=== PATIENT | male | born 1955 | race Caucasian/White ===

== ENCOUNTER 2017-09-01 08:54 | Emergency (ER) | payer SELFPAY ==
[~2017-09-01] VITALS: Ht 177.8 cm; Wt 81.0 kg
[~2017-09-01 08:54] MED LIST: DOXYCYCLINE HY100 MG PO; HYCODAN SYRUP480 ML PO; PERCOCET 5/31 TABLET PO; PROTONIX40 MG PO; REQUIP0.25 MG PO; TRAMADOL HCL50 MG PO; VITAMIN D-32000 UNI1 PO; ZESTRIL10 MG PO; ZOFRAN4 MG PO; Zestril,Prinivil PO
[2017-09-01 09:24] LABS: HEMATOCRIT 38.9 % (38.0-50.0); HEMOGLOBIN 13.9 G/DL (12.5-16.6); MCH 34.5 PG (29.0-34.0); MCHC 35.7 G/DL (30.0-36.0); MCV 96.5 FL (86-99); PLATELET COUNT 198 K/uL (156-360); RBC DIS.WIDTH-CV 11.9 % (11.8-14.6); RBC DIS.WIDTH-SD 42.4 % (39-53); RED BLOOD COUNT 4.03 M/uL (4.00-5.50); WHITE BLOOD COUNT 10.9 K/uL (4.1-10.2)
[2017-09-01 09:35] LABS: CHLORIDE 96 mEq/L (99-109); POTASSIUM 4.6 mEq/L (3.7-5.4); SODIUM 134 mEq/L (136-147)
[2017-09-01 09:36] LABS: GLUCOSE 123 mg/dL (70-99)
[2017-09-01 09:40] LABS: CREATININE 0.8 mg/dL (0.6-1.3); GFR ESTIMATE (CALCULATED) > 59 mL/min/ (58.99-99999)
[2017-09-01 09:41] LABS: UREA NITROGEN (BUN) 9 mg/dL (9-23)
[2017-09-01 10:19] LABS: TROP-I INTERPRETATION NEGATIVE; TROPONIN-I < 0.01 ng/mL (0.0-0.30)
[2017-09-01] MEDS ORDERED: PREDNISONE20 MG PO (11:42)
[2017-09-01] MEDS ORDERED: NEBULIZER MC (11:42)
[2017-09-01] MEDS ORDERED: DUONEB 2.5-0.5 M3 ML AEROSOL (11:42)
[2017-09-01 13:16] VITALS: BP 122/64
[2017-09-02] MEDS ORDERED: DILTIAZEM 24HR120 MG PO (14:51)
[2017-09-02] MEDS ORDERED: CITALOPRAM HBR20 MG PO (14:52)
[2017-09-02] MEDS ORDERED: ALPRAZOLAM0.25 M2 PO (14:53)
[2017-09-02] MEDS ORDERED: INDERAL20 MG PO (14:53)
[2017-09-02] MEDS ORDERED: ROPINIROLE HC0.25 MG PO (14:54)
[2017-09-02] MEDS ORDERED: NIGHTTIME SLEEP PO (14:55)
== END 2017-09-01 13:17 | disposition home or self-care (01) ==
LOC: EME 08:54
PROVIDERS: Emergency Medicine Emergency Medical Services
DX: J44.9 Chronic obstructive pulmonary disease, unspecified (principal); J06.9 Acute upper respiratory infection, unspecified; R07.9 Chest pain, unspecified; F17.200 Nicotine dependence, unspecified, uncomplicated; G43.909 Migraine, unspecified, not intractable, without status migrainosus; M54.30 Sciatica, unspecified side
CPT/HCPCS: 71045; 80048; 83880; 84484; 85027; 93005; 94644; 99281; 99285; J7512

== ENCOUNTER 2017-09-02 08:01 | Inpatient (IN) | payer SELFPAY ==
[~2017-09-02] VITALS: Ht 177.8 cm; Wt 81.0 kg
[~2017-09-02 08:01] MED LIST changes: +DUONEB 2.5-0.5 M3 ML AEROSOL; +NEBULIZER MC; +PREDNISONE20 MG PO
[2017-09-02 12:45] LABS: HEMATOCRIT 36.6 % (38.0-50.0); HEMOGLOBIN 13.3 G/DL (12.5-16.6); MCH 34.5 PG (29.0-34.0); MCHC 36.3 G/DL (30.0-36.0); MCV 95.1 FL (86-99); PLATELET COUNT 184 K/uL (156-360); RBC DIS.WIDTH-CV 11.7 % (11.8-14.6); RBC DIS.WIDTH-SD 40.2 % (39-53); RED BLOOD COUNT 3.85 M/uL (4.00-5.50); WHITE BLOOD COUNT 8.1 K/uL (4.1-10.2)
[2017-09-02 12:56] LABS: CHLORIDE 94 mEq/L (99-109); SODIUM 133 mEq/L (136-147)
[2017-09-02 12:57] LABS: GLUCOSE 161 mg/dL (70-99)
[2017-09-02 13:01] LABS: CREATININE 0.7 mg/dL (0.6-1.3); GFR ESTIMATE (CALCULATED) > 59 mL/min/ (58.99-99999)
[2017-09-02 13:02] LABS: UREA NITROGEN (BUN) 7 mg/dL (9-23)
[2017-09-02 13:07] LABS: TROP-I INTERPRETATION NEGATIVE; TROPONIN-I 0.01 ng/mL (0.0-0.30)
[2017-09-02] MEDS ORDERED: DILTIAZEM 24HR120 MG PO (14:51)
[2017-09-02] MEDS ORDERED: CITALOPRAM HBR20 MG PO (14:52)
[2017-09-02] MEDS ORDERED: ALPRAZOLAM0.25 M2 PO (14:53)
[2017-09-02] MEDS ORDERED: INDERAL20 MG PO (14:53)
[2017-09-02] MEDS ORDERED: ROPINIROLE HC0.25 MG PO (14:54)
[2017-09-02] MEDS ORDERED: NIGHTTIME SLEEP PO (14:55)
[2017-09-02 19:34] VITALS: BP 140/63
[2017-09-02 23:22] VITALS: BP 153/73
[2017-09-03 04:00] VITALS: BP 159/76
[2017-09-03 08:00] VITALS: BP 149/71
[2017-09-03 11:00] VITALS: BP 150/72
[2017-09-03 15:00] VITALS: BP 154/74
[2017-09-04 00:51] VITALS: BP 126/62
[2017-09-04 07:00] VITALS: BP 146/67
[2017-09-04 15:20] VITALS: BP 143/66
[2017-09-04 23:02] VITALS: BP 132/69
[2017-09-05 06:59] VITALS: BP 165/74
[2017-09-05] MEDS ORDERED: SPIRIVA RESPIMAT4 GM IH (11:22)
[2017-09-05] MEDS ORDERED: DULERA 100 MCG/13 GM IH (11:22)
[2017-09-05] MEDS ORDERED: PREDNISONE20 MG PO (11:22)
[2017-09-05] MEDS ORDERED: PROVENTIL HFA6.7 GM IH (11:56)
== END 2017-09-05 13:56 | disposition home or self-care (01) | DRG 192 ==
LOC: EME 08:01 → 5EAST 13:10 → EDOF 13:10 → ENRESERV 13:25 → 5EAST 15:19
PROVIDERS: Emergency Medicine Emergency Medical Services
DX: J44.1 Chronic obstructive pulmonary disease with (acute) exacerbation (principal); J20.9 Acute bronchitis, unspecified; J44.0 Chronic obstructive pulmonary disease with (acute) lower respiratory infection; F17.210 Nicotine dependence, cigarettes, uncomplicated; I10 Essential (primary) hypertension; G25.81 Restless legs syndrome; G43.909 Migraine, unspecified, not intractable, without status migrainosus; M54.30 Sciatica, unspecified side; F32.9 Major depressive disorder, single episode, unspecified
CPT/HCPCS: 71045; 80048; 83735; 83880; 84484; 85027; 93005; 94640; 94640 76; 94644; 94760; 94799; 99202; 99281; 99284; 99285; J1650; J2930; J3411; J3475; J7030; J7040; J7512